=== PATIENT | female | born 1950 | race Caucasian/White ===

== ENCOUNTER → 2016-05-28 | Outpatient (CLI) | payer MEDICARE, OTHER | LOC: LAB.O 14:39 | PROVIDERS: ATTEND Nurse Practitioner Family | DX: K52.89 Other specified noninfective gastroenteritis and colitis (principal); R10.84 Generalized abdominal pain ==

== ENCOUNTER 2016-06-02 20:01 | Emergency (ER) | payer MEDICARE, OTHER ==
[2016-06-02 20:49] VITALS: O2SAT 97
--- NOTE | 2016-06-02 21:07 | ED.PDOC ---
History of Present Illness - General Chief Complaint: GI Problem Stated Complaint: constipation and abd cramping Time Seen by Provider: 06/02/16 21:00 Source: patient, RN notes reviewed, Vital Signs reviewed - History of Present Illness Initial Comments: Patient is a 66 y/o female who had a GI bug last week, nausea/vomiting/ diarrhea. She took some medication for diarrhea 5 days ago. Now she is constipated and cannot get her bowels to move. She has taken several OTC medications for constipation several hours ago but has not had any results. She is having cramping in her abdomen and is extremely uncomfortable. Timing/Duration: 24 hours, getting worse Severity: moderate Improving Factors: nothing Worsening Factors: nothing Associated Symptoms: denies symptoms Allergies/Adverse Reactions: Allergies NO KNOWN ALLERGY Allergy (Verified 06/02/16 20:38) Home Medications: Ambulatory Orders Alendronate Sodium [Fosamax] 70 mg PO DAILY 06/06/15 Conjugated Estrogens [Premarin] 0.45 mg PO QD 06/06/15 Thyroid [[place] Thyroid] 90 mg PO DAILY 06/06/15 Review of Systems - Review of Systems Constitutional: States: no symptoms reported EENTM: States: no symptoms reported Respiratory: States: no symptoms reported Cardiology: States: no symptoms reported Gastrointestinal/Abdominal: States: abdominal pain - cramping, constipation Genitourinary: States: no symptoms reported Musculoskeletal: States: no symptoms reported Skin: States: no symptoms reported Neurological: States: no symptoms reported Endocrine: States: no symptoms reported Hematologic/Lymphatic: States: no symptoms reported All other Systems: Reviewed and Negative Past Medical History (General) - Patient Medical History Hx Seizures: No Hx Stroke: No Hx Dementia: No Hx Asthma: No Hx of COPD: No Hx Cardiac Disorders: No Hx Congestive Heart Failure: No Hx Pacemaker: No Hx Hypertension: No Hx Thyroid Disease: No Hx Diabetes: No Hx Gastroesophageal Reflux: No Hx Renal Disease: No Hx of HIV: No Hx MRSA: No Surgical History: appendectomy, tonsillectomy, Hysterectomy, other - Vaccination History Hx Influenza Vaccination: No Hx Pneumococcal Vaccination: Yes - Social History Hx Tobacco Use: No Hx Alcohol Use: No Hx Substance Use: No Hx Substance Use Treatment: No Hx Depression: No - Female History Patient is a Female of Child Bearing Age (10 -59 yrs old): No Patient : No Family Medical History - Family History Mother Family History: Unknown Physical Exam - Physical Exam General Appearance: Alert, Obvious distress Ears, Nose, Throat: hearing grossly normal, normal ENT inspection Respiratory: lungs clear, normal breath sounds, no respiratory distress, no accessory muscle use Cardiovascular/Chest: regular rate, rhythm, no edema, no gallop, no murmur Gastrointestinal/Abdominal: normal bowel sounds, soft, no organomegaly, tenderness - mild, primarily in LLQ Extremity: normal range of motion Neurologic: alert, normal mood/affect, oriented x 3 Skin Exam: normal color, warm/dry Progress - Progress Progress: 06/02/16 22:11 Patient had a small bowel movement after the enema and can now "feel it moving. " I instructed her to stay well-hydrated. She can get some Magnesium Citrate at the store and take 1/4 to 1/2 of it if she doesn't have any improvement over the next several hours. She agrees to come in for worsening of pain or fever. Departure - Departure Clinical Impression: Constipation Qualifiers: Constipation type: slow transit constipation Qualifier Code: (K59.01) Slow transit constipation Time of Disposition: 22:13 Disposition: Discharge to Home or Self Care Condition: Fair Departure Forms: ED Discharge - Pt. Copy, Patient Portal Self Enrollment Instructions: Constipation, DI for Constipation Diet: resume usual diet Home Medications: Ambulatory Orders Alendronate Sodium [Fosamax] 70 mg PO DAILY 06/06/15 Conjugated Estrogens [Premarin] 0.45 mg PO QD 06/06/15 Thyroid [[place] Thyroid] 90 mg PO DAILY 06/06/15 Additional Instructions: May take 1/4 to 1/2 bottle of magnesium citrate if further treatment is necessary.
[2016-06-02] MEDS: SODIUM PHOS/BIPHOS ENEMA ADULT 133 ML BTTL PR ONE (21:32)
[2016-06-02 22:31] VITALS: BP 138/85; TEMP 98.1
== END 2016-06-02 22:31 | disposition home or self-care (01) ==
LOC: ER 20:01
DX: K59.01 Slow transit constipation (principal)

== ENCOUNTER → 2016-08-18 | Outpatient (CLI) | payer MEDICARE, OTHER | END | disposition home or self-care (01) | LOC: GMAB 10:15 | PROVIDERS: ATTEND Family Medicine | DX: E03.9 Hypothyroidism, unspecified (principal) ==

== ENCOUNTER → 2017-09-19 | Outpatient (CLI) | payer MEDICARE, OTHER | LOC: GMAB 16:33 | PROVIDERS: ATTEND Family Medicine | DX: E03.9 Hypothyroidism, unspecified (principal) ==

== ENCOUNTER 2017-12-26 05:10 | Emergency (ER) | payer MEDICARE, OTHER ==
[2017-12-26 05:28] VITALS: TEMP 99.5
[2017-12-26] MEDS ORDERED: ASPIRIN (CHEWABLE) 81 MG TAB ONE (05:41)
[2017-12-26] MEDS ORDERED: ASPIRIN (CHEWABLE) 81 MG TAB PO ONE (05:42)
--- NOTE | 2017-12-26 05:46 | ED.PDOC ---
History of Present Illness - General Source: patient Exam Limitations: no limitations - History of Present Illness Initial Comments: Stephanie Tineo 67 y/o female stated that she had intermittent stabbing pains on her back started Tuesday night 23 December 2017 which was tolerable then it eased off then pain radiated to her chest lasting for about 3 minutes then went away but her upper back pains got worse which kept her awake early this am with pain on respiration.No diaphoresis,no N/V.Denies cardiac problems in the past.Took Tramadol this am pain not relieved. Timing/Duration: days - 2 1/2 days, getting worse, intermittent Severity: moderate Location: back - left upper back and left side chest Activities at Onset: none Prior Chest Pain/Cardiac Workup: no prior chest pain, no prior cardiac workup Improving Factors: nothing Worsening Factors: nothing Nitro Today/Relief: 0.4 mg x 1, provided by ED Aspirin Treatment Today: 325 mg x 1, provided by ED Associated Symptoms: shortness of breath <Darío Calderon - Last Filed: 12/26/17 06:29> <Ignacio Call - Last Filed: 12/26/17 09:33> - General Chief Complaint: Chest Pain/VA Stated Complaint: back and chest pain, hurts to breathe Time Seen by Provider: 12/26/17 05:43 - History of Present Illness Allergies/Adverse Reactions: Allergies NO KNOWN ALLERGY Allergy (Verified 06/02/16 20:38) Home Medications: Ambulatory Orders Psmxjpzhydpwt-Wwul-Gqsaaocnfm [Fioricet] 1 ea PO Q8H PRN #21 tab 12/26/17 Cyclobenzaprine HCl [Flexeril] 5 mg PO TID PRN #30 tab 12/26/17 Estradiol [Estradiol] 12/26/17 Levothyroxine Sodium [Synthroid] 75 mcg PO 12/26/17 predniSONE [Prednisone] 20 mg PO DAILY #5 tab 12/26/17 Review of Systems - Review of Systems Constitutional: States: no symptoms reported EENTM: States: no symptoms reported Respiratory: States: no symptoms reported Cardiology: States: see HPI Genitourinary: States: no symptoms reported Musculoskeletal: States: see HPI, back pain - upper back Skin: States: no symptoms reported Neurological: States: no symptoms reported Endocrine: States: no symptoms reported Hematologic/Lymphatic: States: no symptoms reported <Bucag,Chanel R - Last Filed: 12/26/17 06:29> Past Medical History (General) - Patient Medical History Hx Seizures: No Hx Stroke: No Hx Dementia: No Hx Asthma: No Hx of COPD: No Hx Cardiac Disorders: No Hx Congestive Heart Failure: No Hx Pacemaker: No Hx Hypertension: No Hx Thyroid Disease: Yes Hx Diabetes: No Hx Gastroesophageal Reflux: No Hx Renal Disease: No Hx of HIV: No Hx MRSA: No Surgical History: appendectomy, tonsillectomy, other - hysterectomy - Vaccination History Hx Influenza Vaccination: No Hx Pneumococcal Vaccination: Yes Immunizations Up to Date: Yes - Social History Hx Tobacco Use: No Hx Alcohol Use: No Hx Substance Use: No Hx Substance Use Treatment: No Hx Depression: No Hx Physical Abuse: No Hx Emotional Abuse: No - Activities of Daily Living Patient Lives Alone: No Grooming Ability: Independent Eating (Feeding) Ability: Independent Toileting Ability: Independent - Female History Patient is a Female of Child Bearing Age (10 -59 yrs old): No Patient : No - Triage Comment ED Triage Comment: Pain to back and chest, hurts to breathe. <Ami Calderoniciano R - Last Filed: 12/26/17 06:29> Family Medical History - Family History Mother Family History: Unknown Hx Family Cancer: Yes - ovarian-mom; <Ami Calderoniciano R - Last Filed: 12/26/17 06:29> Physical Exam - Physical Exam General Appearance: Alert, Anxious, No apparent distress Eyes, Ears, Nose, Throat Exam: normal ENT inspection Neck: non-tender, full range of motion, supple, normal inspection Respiratory: chest non-tender, lungs clear, normal breath sounds, no respiratory distress Cardiovascular/Chest: normal peripheral pulses, regular rate, rhythm, no murmur Peripheral Pulses: radial,right: 2+, radial,left: 2+ Gastrointestinal/Abdominal: normal bowel sounds, non tender, soft, no organomegaly Extremity: normal range of motion, non-tender, no pedal edema, no calf tenderness Neurologic: no motor/sensory deficits, alert, oriented x 3 Skin Exam: normal color, warm/dry <DakotaAmi phanChanel R - Last Filed: 12/26/17 06:29> Progress - Progress Progress: 12/26/17 06:24 Vital Signs - 8 hr 12/26/17 12/26/17 12/26/17 05:20 05:29 06:10 Temperature 99.5 F Pulse Rate [ 86 74 65 Apical] Respiratory 22 22 Rate Blood Pressure 138/86 139/84 [Left] O2 Sat by Pulse 100 Oximetry - EKG/XRAY/CT EKG: Sinus, nonspecific ST T wave Chg - anterolateral leads Comments: HR-81 <Darío Calderon R - Last Filed: 12/26/17 06:29> - Results/Orders Results/Orders: the patient is a 67-year-old female presenting to the emergency room secondary to episodic back pain for the last 3 days that has gotten worse. The patient has had an extensive workup here including cardiac enzymes, d-dimer, coags as well as a CT angiogram of the chest which have shown no acute pathology. EKG is reassuring. The patient's symptoms are most consistent with a left-sided rhomboid muscle strain. She has been instructed on how to stretch this muscle. The patient is going to be placed on prednisone 20 mg daily for 5 days as well as Flexeril 10 mg 3 times a day as needed. She will also be written for some Fioricet for as needed use. warnings for these medications have been given. Topical heat may help. Gentle massage may help. The patient has been monitored for several hours on telemetry indicating no evidence of any arrhythmia. The patient does take estradiol as a supplement so I would recommend that she take an aspirin daily as a mild prophylactic measure. she should plan on following up with her primary care doctor later this week for repeat clinical evaluation. potassium was mildly low here today and she was given a supplemental dose. This may need to be followed long-term. She does need to keep herself well hydrated. CT angiogram the chest showed no evidence of any pulmonary emboli. There is no mention of any aortic pathology that is obvious. No pneumothorax or hemothorax. No evidence of any significant pericardial effusion. Laboratory Results - last 24 hr 12/26/17 12/26/17 12/26/17 05:40 05:40 05:40 WBC 12.1 H RBC 4.64 Hgb 14.6 Hct 43.8 MCV 94.4 MCH 31.6 H MCHC 33.5 RDW 13.2 Plt Count 275 MPV 9.9 Absolute Neuts (auto) 6.10 Absolute Lymphs (auto) 4.80 H Absolute Monos (auto) 0.80 Absolute Eos (auto) 0.20 Absolute Basos (auto) 0.10 Neutrophils % 50.4 Lymphocytes % 39.8 Monocytes % 6.8 Eosinophils % 2.0 Basophils % 1.0 PT 9.6 INR 0.96 PTT (SP) 24.6 D-Dimer, Quantitative 0.47 Sodium 139 Potassium 3.4 L Chloride 103 Carbon Dioxide 24 Anion Gap 15.4 BUN 17 Creatinine 0.94 BUN/Creatinine Ratio 18.1 Random Glucose 104 Serum Osmolality 279.4 Calcium 9.8 Magnesium 2.0 Total Bilirubin 0.4 Direct Bilirubin < 0.1 Indirect Bilirubin 0.3 AST 22 ALT 16 Alkaline Phosphatase 76 Creatine Kinase 22 L CK-MB (CK-2) 0.5 CK-MB (CK-2) % Not Reportable Troponin I < 0.02 Serum Total Protein 7.4 Albumin 4.3 <Ignacio Call L - Last Filed: 12/26/17 09:33> Departure <Darío Calderon - Last Filed: 12/26/17 06:29> - Departure Diet: regular diet Activity: increase activity as tolerated <Ignacio Call L - Last Filed: 12/26/17 09:33> - Departure Clinical Impression: Rhomboid muscle strain Qualifiers: Encounter type: initial encounter Qualified Code(s): S29.012A - Strain of muscle and tendon of back wall of thorax, initial encounter Disposition: Discharge to Home or Self Care Condition: Fair Departure Forms: ED Discharge - Pt. Copy, Patient Portal Self Enrollment Instructions: Muscle Strain Prescriptions: Lgmywoldtpfmc-Metu-Szzrewxqpx [Fioricet] 1 ea PO Q8H PRN #21 tab PRN Reason: Pain Cyclobenzaprine HCl [Flexeril] 5 mg PO TID PRN #30 tab PRN Reason: Muscle Spasms predniSONE [Prednisone] 20 mg PO DAILY #5 tab Home Medications: Ambulatory Orders Hdkfolumwwcwj-Yhus-Hzffzlrtvu [Fioricet] 1 ea PO Q8H PRN #21 tab 12/26/17 Cyclobenzaprine HCl [Flexeril] 5 mg PO TID PRN #30 tab 12/26/17 Estradiol [Estradiol] 12/26/17 Levothyroxine Sodium [Synthroid] 75 mcg PO 12/26/17 predniSONE [Prednisone] 20 mg PO DAILY #5 tab 12/26/17 Additional Instructions: the patient is a 67-year-old female presenting to the emergency room secondary to episodic back pain for the last 3 days that has gotten worse. The patient has had an extensive workup here including cardiac enzymes, d-dimer, coags as well as a CT angiogram of the chest which have shown no acute pathology. EKG is reassuring. The patient's symptoms are most consistent with a left-sided rhomboid muscle strain. She has been instructed on how to stretch this muscle. The patient is going to be placed on prednisone 20 mg daily for 5 days as well as Flexeril 10 mg 3 times a day as needed. She will also be written for some Fioricet for as needed use. warnings for these medications have been given. Topical heat may help. Gentle massage may help. The patient has been monitored for several hours on telemetry indicating no evidence of any arrhythmia. The patient does take estradiol as a supplement so I would recommend that she take an aspirin daily as a mild prophylactic measure. she should plan on following up with her primary care doctor later this week for repeat clinical evaluation. potassium was mildly low here today and she was given a supplemental dose. This may need to be followed long-term. She does need to keep herself well hydrated.
--- NOTE | 2017-12-26 06:09 | RAD ---
EXAM: AP CHEST RADIOGRAPH CLINICAL INDICATION: Acute chest pain. COMPARISON: No comparisons are available. FINDINGS: Cardiac size and pulmonary vasculature are normal. Lungs are clear. No pleural effusions or pneumothorax. No hilar or mediastinal lymphadenopathy. No mediastinal widening. No extraluminal bowel gas under the hemidiaphragms. Remotely healed right posterior lateral eighth rib fracture. Bones are intact on this single view. IMPRESSION: Normal for age portable AP chest radiograph. Electronically signed by: Tommie Justice MD 12/26/2017 6:08 AM CDT
[2017-12-26] MEDS ORDERED: NITROGLYCERIN 0.4 MG 25 EA TAB SL ONE ×2 (06:12→06:13)
[2017-12-26] MEDS ORDERED: HYDROmorphone HCL INJ 2 MG/ML VIAL IV ONE (06:36)
--- NOTE | 2017-12-26 08:54 | CT ---
EXAM DESCRIPTION: CT angiogram chest with contrast CLINICAL HISTORY: Pleuritic chest pain. Upper back pain. Assess for pulmonary embolus COMPARISON: None Available. TECHNIQUE: Spiral CT with multiplanar reformatted images. Intravenous iodinated nonionic contrast. 3-D reconstructions This exam was performed according to our departmental dose-optimization program, which includes automated exposure control, adjustment of the mA and/or kV according to patient size and/or use of iterative reconstruction technique. FINDINGS: Normal contrast enhancement of the pulmonary arteries. No filling defect to diagnose embolus Normal contrast enhancement of cardiac chambers and aorta No pulmonary edema, alveolar infiltrate or effusion No acute bony abnormality. No pneumothorax. No mass or adenopathy in the visualized upper abdomen IMPRESSION: Normal CT angiogram chest. No pulmonary embolus Electronically signed by: Chidi Frost MD 12/26/2017 8:53 AM CDT
[2017-12-26] MEDS ORDERED: HYDROcodone 5MG/APAP 325MG 1 EA TAB PO ONE (09:32)
[2017-12-26] MEDS ORDERED: CYCLOBENZAPRINE HCL 10 MG TAB PO ONE (09:32)
[2017-12-26] MEDS ORDERED: predniSONE 20 MG TAB PO ONE (09:32)
[2017-12-26 09:40] VITALS: BP 151/73; O2SAT 98
== END 2017-12-26 09:40 | disposition home or self-care (01) ==
LOC: ER 05:10
DX: S29.012A Strain of muscle and tendon of back wall of thorax, initial encounter (principal); R07.9 Chest pain, unspecified; R06.02 Shortness of breath; E07.9 Disorder of thyroid, unspecified; Z90.49 Acquired absence of other specified parts of digestive tract; Z79.899 Other long term (current) drug therapy
CPT/HCPCS: 36415; 71045; 71275; 80048; 80076; 82550; 82553; 84484; 85025; 85379; 85610; 85730; 93005; J1170; J7512

== ENCOUNTER → 2018-03-27 | Outpatient (CLI) | payer MEDICARE, OTHER | LOC: GMAE 11:43 | PROVIDERS: ATTEND Family Medicine | DX: E03.9 Hypothyroidism, unspecified (principal) ==

== ENCOUNTER → 2018-07-06 | Outpatient (CLI) | payer MEDICARE, OTHER | LOC: GMAE 10:26 | PROVIDERS: ATTEND Family Medicine | DX: L65.9 Nonscarring hair loss, unspecified (principal); D53.9 Nutritional anemia, unspecified ==

== ENCOUNTER → 2019-06-16 | Outpatient (CLI) | payer MEDICARE, OTHER ==
--- NOTE | 2019-06-16 11:17 | RAD ---
EXAM: XR Abdomen, 2 Views CLINICAL HISTORY: ABD PAIN TECHNIQUE: Frontal view of the abdomen/pelvis with upright view of the abdomen. COMPARISON: No relevant prior studies available. FINDINGS: Intraperitoneal space: No free air. Gastrointestinal tract: Unremarkable. No dilation. Bones/joints: Degenerative changes present in the spine. IMPRESSION: No acute findings in the abdomen or pelvis. Electronically signed by: Regina Burt MD 06/16/2019 11:15 AM MANAGER [employer]
== END ==
LOC: LAB.O 10:26
PROVIDERS: ATTEND Family Medicine
DX: R10.84 Generalized abdominal pain (principal)

== ENCOUNTER → 2020-04-17 | Outpatient (CLI) | payer MEDICARE, OTHER | LOC: GMAE 10:51 | PROVIDERS: ATTEND Family Medicine | DX: E03.9 Hypothyroidism, unspecified (principal); E78.2 Mixed hyperlipidemia; Z79.899 Other long term (current) drug therapy ==